=== PATIENT | female | born 2000 | race Caucasian/White ===

== ENCOUNTER 2023-08-21 09:52 | Inpatient (IN) ==
[2023-08-21] MEDS: SODIUM CHLORIDE 0.9% 500 ML IV SCH (10:50)
[2023-08-21] MEDS: levETIRAcetam 500 MG/5 ML VIAL IV STA ×2 (10:52→11:28)
--- NOTE | 2023-08-21 10:54 | Emergency Department Note ---
Impression & Plan Seizure, Head injury ED Provider Note NAME: CARLENE KHAN AGE: 23 SEX: F : 2000 ARRIVES VIA: Ambulance INFORMANT: Patient, EMS ED PROVIDER(S): Seymour Hair DO CHIEF COMPLAINT: Seizure disorder HPI: The patient is a 23-year-old female who presented to the emergency department from the [facility] for an evaluation of seizure. The patient has been having episodes of seizure through the course of the last 24 hours. She has had episodes of vomiting. She received Ativan prior to arrival. She is on Keppra and reportedly is taking it. The patient also received Versed by the prehospital personnel prior to arrival. She had an episode where she jumped out of the bed and struck her head according to nursing staff. ROS: See above HPI for pertinent positives & negatives. A total of 10 systems reviewed and were otherwise negative. PAST MEDICAL HISTORY: See Below PAST SURGICAL HISTORY: See Below FAMILY HISTORY: See Below SOCIAL HISTORY: See Below HOME MEDICATIONS: See Below ALLERGIES: See Below VITALS: See Below PHYSICAL EXAMINATION: GENERAL: Patient is awake and alert. She is somewhat anxious appearing. EYES: The conjunctivae are clear. The pupils are round and reactive. EARS, NOSE, MOUTH AND THROAT: The nose is without any evidence of any deformity. Mucous membranes are moist. NECK: The neck is nontender and supple. RESPIRATORY: Normal respiratory effort is noted there is no evidence of wheezing rhonchi or rales CARDIOVASCULAR: Regular rate and rhythm noted there no murmurs rubs or gallops normal S1 normal S2. GASTROINTESTINAL: The abdomen is soft. Abdomen is nontender. MUSCULOSKELETAL/EXTREMITIES: There is no evidence of gross deformity full range of motion is noted in the hips and shoulders. SKIN: There is no obvious evidence of any rash. There are no petechiae, pallor or cyanosis noted. NEUROLOGIC: Patient is awake alert and oriented x3. Strength was symmetric. MEDICAL DECISION MAKING: The patient is a 23-year-old female who presented to the emergency department from the [facility] for an evaluation of possible seizure-like activity. The patient was found to have multiple seizures throughout the last 24 hours. She has had multiple seizures in the emergency department. Some of the seizures are less obvious than others. The patient has a history of seizure disorder. She was treated with IV Keppra and IV Ativan in the emergency department. I discussed patient's laboratory and radiographic studies with her. Given her findings and her presentation I do not feel that she would be a good candidate for discharge back to the [facility]. For this reason I discussed her condition with the on-call [facility] [place] [facility]. They have agreed to evaluate the patient in the emergency department for further management and disposition. Triage Nursing notes reviewed. Prior medical records reviewed Vital Signs: reviewed and remarkable for no significant abnormalities Differential diagnosis: Epilepsy, infection, hypoglycemia, electrolyte abnormalities, cardiac sources, intracerebral event, trauma, toxicologic, neurologic, syncope, as well as other pathologies. ER treatment provided: See below Diagnostics interpreted by me: ECG: EKG was obtained in the emergency department. My interpretation is normal sinus rhythm at beats per minute. There is no ectopy. There is no acute ST segment abnormalities noted. This was compared to a tracing from September 25, 2022. No changes were noted. Cardiac Monitoring: An order was placed for continuous cardiac monitoring. The monitor shows a rate of 62 bpm with sinus rhythm. Laboratory studies: As stated above and show below. Imaging studies: See below. Radiographic imaging was reviewed by myself Consultation(s): Discussed this case with Dr. Jurado [facility] COURSE: Procedures: none Critical Care: I have personally spent greater than 45 minutes of critical care time in the direct management of this patient. This includes bedside care, interpretation of diagnostic studies, and testing, discussion with consultants, patient, and family members, and other required patient management activities. This 45 minutes is in excess of all separately billable procedures. Past Med/Surg History Medical History (Updated 08/21/23 @ 14:07 by Seymour Hair DO) Asthma Seizure disorder Surgical History (Updated 08/21/23 @ 13:27 by Heri Del Rosario PA-C) History of splenectomy History of Social History Smoking Status: Unknown if ever smoked Hx Substance Use: Yes Prescribed Medications: Marijuana and Opiates Preferred Language: [place] Allergies Allergies Allergy/AdvReac Type Severity Reaction Status Date / Time kiwi Allergy Intermediate Numbness Verified 08/21/23 12:26 Home Meds Home Medications Medication Instructions Recorded Confirmed clonidine HCl 0.1 mg tablet 0.1 mg PO DIRECTED 08/21/23 08/21/23 levetiracetam 500 mg tablet 500 mg PO BID 08/21/23 08/21/23 (Keppra) methocarbamol 750 mg tablet 1,500 mg PO DIRECTED 08/21/23 08/21/23 prochlorperazine 25 mg rectal 25 mg RI DIRECTED 08/21/23 08/21/23 suppository (Compazine) sertraline 25 mg tablet (Zoloft) 25 mg PO DAILY 08/21/23 08/21/23 Results & Data (ED) Vital Signs Vital Signs - 24 hr 08/21/23 10:01 08/21/23 10:25 08/21/23 11:02 Temperature 36.9 C Temperature Source Oral Pulse Rate 80 79 54 L Pulse Rate [Apical] Pulse Rhythm Pulse Rhythm [Apical] Pulse Strength [Apical] Respiratory Rate 18 16 Respiratory Effort / Characteristics Non-Labored Spontaneous Respiratory Depth Normal Respiratory Pattern Blood Pressure 162/102 H 141/88 H Blood Pressure [Right Arm] Blood Pressure Mean 122 97 Blood Pressure Mean [Right Arm] Blood Pressure Position Lying Blood Pressure Position [Right Arm] Pulse Oximetry 98 100 Oxygen Delivery Method Room Air Sepsis Recent Fever Within 48 Hours No Sepsis New/Unexplained Change in Mental Status No Sepsis Action Taken by Nursing No Action Required 08/21/23 11:16 08/21/23 12:02 08/21/23 12:08 Temperature Temperature Source Pulse Rate 64 63 62 Pulse Rate [Apical] Pulse Rhythm Regular Pulse Rhythm [Apical] Pulse Strength [Apical] Respiratory Rate 18 16 16 Respiratory Effort / Characteristics Respiratory Depth Respiratory Pattern Blood Pressure 138/103 H 109/66 Blood Pressure [Right Arm] Blood Pressure Mean 122 79 Blood Pressure Mean [Right Arm] Blood Pressure Position Blood Pressure Position [Right Arm] Pulse Oximetry 100 100 97 Oxygen Delivery Method Room Air Room Air Sepsis Recent Fever Within 48 Hours Sepsis New/Unexplained Change in Mental Status Sepsis Action Taken by Nursing 08/21/23 12:09 08/21/23 14:00 08/21/23 16:00 Temperature Temperature Source Pulse Rate Pulse Rate [Apical] 62 60 57 L Pulse Rhythm Pulse Rhythm [Apical] Regular Regular Pulse Strength [Apical] Normal Respiratory Rate 18 18 18 Respiratory Effort / Characteristics Non-Labored Spontaneous Non-Labored Spontaneous Non-Labored Spontaneous Respiratory Depth Normal Normal Normal Respiratory Pattern Regular Regular Regular Blood Pressure Blood Pressure [Right Arm] 109/66 126/94 144/97 H Blood Pressure Mean Blood Pressure Mean [Right Arm] 80 104 112 Blood Pressure Position Blood Pressure Position [Right Arm] Sitting Sitting Pulse Oximetry 97 100 100 Oxygen Delivery Method Room Air Room Air Room Air Sepsis Recent Fever Within 48 Hours Sepsis New/Unexplained Change in Mental Status Sepsis Action Taken by Half-Way Medications Current Medication List: was personally reviewed by me Laboratory Data Attestation: I reviewed the patient's lab results. 08/21/23 11:40 08/21/23 11:40 Lab Results 08/21/23 08/21/23 08/21/23 Range/Units 11:40 12:17 14:35 WBC 8.64 (4.8-10.8) K/ul RBC 5.57 H (4.20-5.40) M/uL Hgb 15.0 (12.0-16.0) g/dl Hct 45.2 (37.0-47.0) % MCV 81.1 (80.0-100.0) fL MCH 26.9 (25.0-34.0) pg MCHC 33.2 (32.0-36.0) g/dL RDW Std Deviation 45.9 (36.4-46.3) fL RDW Coeff of [place] 15.6 H (11.5-14.5) % Plt Count 369 (130-400) K/uL MPV 9.8 (9.4-12.4) fL Immature Gran % (Auto) 0.3 % Neut % (Auto) 80.5 % Lymph % (Auto) 16.1 % Mckean % (Auto) 2.4 % Eos % (Auto) 0.2 % Baso % (Auto) 0.5 % Neut # (Auto) 6.95 H (1.40-6.50) K/uL Lymph # (Auto) 1.39 (1.20-3.40) K/uL Mckean # (Auto) 0.21 (0.11-0.59) K/uL Eos # (Auto) 0.02 (0.00-0.50) K/uL Baso # (Auto) 0.04 (0.00-0.20) K/uL Immature Gran # (Auto) 0.03 (0.01-0.20) K/uL PT 11.6 (9.0-12.0) Seconds INR 1.1 (0.9-1.1) APTT 26 (21-31) Seconds PTT Ratio 1.0 VBG pH 7.36 (7.36-7.41) VBG pCO2 41 (38-50) mmHg VBG pO2 30 mmHg VBG HCO3 23 mmol/L VBG O2 Saturation < 60.0 % VBG Base Excess -2.2 mEq/L Sodium 138 (136-145) mmol/L Potassium 3.9 (3.5-5.1) mmol/L Chloride 107 (98-107) mmol/L Carbon Dioxide 22 (21-32) mmol/L Anion Gap 9 (3-11) BUN 7 (6-23) mg/dl Creatinine 0.78 (0.6-1.2) mg/dl Est Cr Clr Drug Dosing 89.4 ml/min Est GFR ( Amer) 124.2 ml/min Est GFR (Non-Af Amer) 107.2 ml/min BUN/Creatinine Ratio 9.0 L (10-20) Glucose 128 H (70-99(Fasting)) mg/dl Lactate 2.4 H* (0.4-2.0) mmol/L Calcium 10.2 (8.6-10.3) mg/dl Magnesium 2.0 (1.7-2.4) mg/dl Total Bilirubin 0.5 (0.2-1.0) mg/dl AST 23 (13-39) U/L ALT 11 (7-52) U/L Alkaline Phosphatase 87 (34-104) U/L Total Creatine Kinase 348 H (26-192) U/L Troponin I High Sens < 2.3 (0-14) pg/ml Total Protein 8.3 (6.0-8.3) gm/dl Albumin 4.8 (3.4-5.0) gm/dl Globulin 3.5 (2.5-4.0) gm/dl Albumin/Globulin Ratio 1.4 (0.9-2) Lipase 7 L (11-82) U/L TSH 0.375 (0.300-4.500) uIu/ml Prolactin 5.71 ng/ml HCG, Qual Negative (Negative) Urine Color Yellow Urine Appearance Turbid A (Clear) Urine pH >= 9.0 H (4.5-7.5) Ur Specific [place] 1.021 (1.000-1.030) Urine Protein 1+ H (Negative) Urine Glucose (UA) Negative (Negative) Urine Ketones Negative (Negative) Urine Blood Negative (Negative) Urine Nitrite Negative (Negative) Urine Bilirubin Negative (Negative) Urine Urobilinogen Negative (Negative) Ur Leukocyte Esterase Negative (Negative) Urine WBC (Auto) 0-5 (0-5) /hpf Urine RBC (Auto) 0-2 (0-2) /hpf U Hyaline Cast (Auto) 3-5 H (0-2) /lpf U Epithel Cells (Auto) 0-2 (0-2) /hpf Urine Bacteria (Auto) None Seen (None Seen) Salicylates < 3.0 L (3.0-30) mg/dl Urine Opiates Screen Neg (Neg) Ur Methadone, Qual Neg (Neg) Acetaminophen < 3 L (10-30) ug/ml Urine Barbiturates Neg (Neg) Ur Phencyclidine (PCP) Neg (Neg) U Amphetamin/Meth Scrn Neg (Neg) MDMA (Ecstasy) Screen Neg (Neg) U Benzodiazepines Scrn Pos H (Neg) Ur Cocaine Metabolite Neg (Neg) U Marijuana (THC) Screen Pos H (Neg) Ethyl Alcohol mg/dL < 10.0 (<10.0) mg/dl Administered Medications Discontinued Medications Sodium Chloride (Nss) 500 mls @ 999 mls/hr IV .Q31M [facility] Stop: 08/21/23 11:00 Last Infusion: 08/21/23 11:29 Dose: Infused Documented By: Admin: 08/21/23 10:50 Dose: 999 mls/hr Documented By: BLAKE Valproic Acid 1,000 mg/ (Dextrose) 60 mls @ 55 mls/hr IV NOW STA Stop: 08/21/23 15:31 Last Infusion: 08/21/23 16:31 Dose: Infused Documented By: Admin: 08/21/23 15:21 Dose: 55 mls/hr Documented By: BLAKE Levetiracetam (Levetiracetam 500 Mg/5 Ml Vial) 1,000 mg 20 mg/kg (1000 mg) IV NOW STA Stop: 08/21/23 10:28 Last Admin: 08/21/23 10:52 Dose: 1,000 mg Documented By: BLAKE Levetiracetam (Levetiracetam 500 Mg/5 Ml Vial) 1,000 mg 20 mg/kg (1000 mg) IV NOW STA Stop: 08/21/23 11:17 Last Admin: 08/21/23 11:28 Dose: 1,000 mg Documented By: JUNE Lorazepam (Lorazepam 1 Mg/1 Ml Syr Ed Inj Use) 1 mg IV ONE STA Stop: 08/21/23 11:34 Last Admin: 08/21/23 11:41 Dose: 1 mg Documented By: BLAKE Imaging Data Attestation: I personally reviewed and interpreted this imaging study as follows: My Impression: 1 view chest x-ray was obtained in the emergency department. My interpretation is no free air or definite infiltrate, final report below. CT of the brain was obtained in the emergency department. My interpretation is no intracranial hemorrhage or mass effect, final report below. Radiologist's Impression: Cervical Spine CT 08/21/23 10:28 CT cervical spine wo con CLINICAL HISTORY: fall TECHNIQUE: Multidetector row helical CT of the cervical spine was performed without administration of intravenous contrast. Coronal and sagittal reformations were obtained. Automated dose lowering techniques and/or adjustment according to patient size were utilized for this exam. Comparison: None available at the time of this dictation. FINDINGS: No acute fractures or subluxations are identified. The vertebral body heights and disk spaces are well maintained. The alignment is normal. Soft tissues are unremarkable. IMPRESSION: No evidence of acute bony injury. ACT 112: Negative or not required by law. Electronically signed by: Jeffery Swanson M.D. 08/21/2023 12:17 PM Chest X-Ray 08/21/23 10:28 XR chest 1V portable CLINICAL HISTORY: fall TECHNIQUE: Single frontal radiograph of the chest was obtained. Comparison: Comparison is made to chest radiograph 09/25/2022 FINDINGS: No lines and tubes are seen. The cardiomediastinal silhouette is normal. The lungs are clear. No evidence of pleural effusion or pneumothorax. IMPRESSION: No acute chest disease. ACT 112: Negative or not required by law. Electronically signed by: Jeffery Swanson M.D. 08/21/2023 11:[address] 08/21/23 10:28 CT OF THE HEAD WITHOUT CONTRAST CLINICAL HISTORY: Syncope. COMPARISON STUDY: Head CT and MRI of the brain September 25, 2022. TECHNIQUE: Helical axial images of the head were obtained without IV contrast. Automated exposure control was utilized for the study. A dose lowering technique was utilized adhering to the principles of ALARA. FINDINGS: This study is mildly compromised by motion artifact. No acute intracranial hemorrhage, midline shift or mass effect is present. The ventricular system is unremarkable. The basal cisterns are patent. No extra- axial collections are present. There are no findings to suggest acute dural sinus thrombosis or acute territorial infarct. No significant calvarial abnormalities are present. Visualized portions of the sinuses and mastoid air cells are clear. IMPRESSION: 1. No acute intracranial findings. Exam mildly compromised by motion artifact. 2. No calvarial fractures identified. ACT 112: Negative or not required by law. Electronically signed by: Tu Worrell M.D. 08/21/2023 12:15 PM Discharge Plan Visit Data Chief Complaint: Seizure ED Provider: Seymour Hair Discharge Problem: Seizure, Head injury Patient Disposition: Being Evaluated by Hospitalist Forms Stand Alone Forms: [facility] Prescriptions Prescriptions: No Action clonidine HCl 0.1 mg Tablet 0.1 mg PO DIRECTED levetiracetam [Keppra] 500 mg Tablet 500 mg PO BID methocarbamol [Robaxin] 750 mg Tablet 1,500 mg PO DIRECTED prochlorperazine [Compazine] 25 mg Suppository 25 mg RI DIRECTED sertraline [Zoloft] 25 mg Tablet 25 mg PO DAILY Referrals Referrals: PCP,NO [Physician] - Discharge Problem: Head injury Qualifiers: Encounter type: initial encounter Qualified Code(s): S09.90XA - Unspecified injury of head, initial encounter
[2023-08-21] MEDS: LORazepam 1 MG/1 ML SYR ED Inj Use IV STA (11:41)
--- NOTE | 2023-08-21 11:44 | XRay Report ---
XR chest 1V portable CLINICAL HISTORY: fall TECHNIQUE: Single frontal radiograph of the chest was obtained. Comparison: Comparison is made to chest radiograph 09/25/2022 FINDINGS: No lines and tubes are seen. The cardiomediastinal silhouette is normal. The lungs are clear. No evid ence of pleural effusion or pneumothorax. IMPRESSION: No acute chest disease. ACT 112: Negative or not required by law. Electronically signed by: Jeffery Swanosn M.D. 08/21/2023 11:42 AM
[2023-08-21 12:07] LABS: Basophils # (auto) 0.04 K/uL (0.00-0.20); Basophils % (auto) 0.5 %; Eosinophils # (auto) 0.02 K/uL (0.00-0.50); Eosinophils % (auto) 0.2 %; Hematocrit (blood only) 45.2 % (37.0-47.0); Immature Granulocytes # (auto) 0.03 K/uL (0.01-0.20); Immature Granulocytes % (auto) 0.3 %; Lymphocytes # (auto) 1.39 K/uL (1.20-3.40); Lymphocytes % (auto) 16.1 %; Mean Corpuscular Hemoglobin 26.9 pg (25.0-34.0); Mean Corpuscular Hgb Conc 33.2 g/dL (32.0-36.0); Mean Corpuscular Volume 81.1 fL (80.0-100.0); Mean Platelet Volume 9.8 fL (9.4-12.4); Monocytes # (auto) 0.21 K/uL (0.11-0.59); Monocytes % (auto) 2.4 %; Neutrophils # (auto) 6.95 K/uL (1.40-6.50); Neutrophils % (auto) 80.5 %; Platelet Count 369 K/uL (130-400); RDW Coefficient of Variation 15.6 % (11.5-14.5); RDW Standard Deviation 45.9 fL (36.4-46.3); Red Blood Count 5.57 M/uL (4.20-5.40); White Blood Count 8.64 K/ul (4.8-10.8)
[2023-08-21 12:12] LABS: Base Excess VBG -2.2 mEq/L; HCO3 VBG 23 mmol/L; Oxygen Saturation VBG < 60.0 %; PCO2 VBG 41 mmHg (38-50); PO2 VBG 30 mmHg; pH VBG 7.36 (7.36-7.41)
--- NOTE | 2023-08-21 12:17 | CT Scan Report ---
CT OF THE HEAD WITHOUT CONTRAST CLINICAL HISTORY: Syncope. COMPARISON STUDY: Head CT and MRI of the brain September 25, 2022. TECHNIQUE: Helical axial images of the head were obtained without IV contrast. Automated exposure con trol was utilized for the study. A dose lowering technique was utilized adhering to the principles o f ALARA. FINDINGS: This study is mildly compromised by motion artifact. No acute intracranial hemorrhage, midl ine shift or mass effect is present. The ventricular system is unremarkable. The basal cisterns are p atent. No extra-axial collections are present. There are no findings to suggest acute dural sinus thr ombosis or acute territorial infarct. No significant calvarial abnormalities are present. Visualized portions of the sinuses and mastoid air cells are clear. IMPRESSION: 1. No acute intracranial findings. Exam mildly compromised by motion artifact. 2. No calvarial fractures identified. ACT 112: Negative or not required by law. Electronically signed by: Tu Worrell M.D. 08/21/2023 12:15 PM
--- NOTE | 2023-08-21 12:18 | CT Scan Report ---
CT cervical spine wo con CLINICAL HISTORY: fall TECHNIQUE: Multidetector row helical CT of the cervical spine was performed without administration of intravenous contrast. Coronal and sagittal reformations were obtained. Automated dose lowering techn iques and/or adjustment according to patient size were utilized for this exam. Comparison: None available at the time of this dictation. FINDINGS: No acute fractures or subluxations are identified. The vertebral body heights and disk spaces are wel l maintained. The alignment is normal. Soft tissues are unremarkable. IMPRESSION: No evidence of acute bony injury. ACT 112: Negative or not required by law. Electronically signed by: Jeffery Swanson M.D. 08/21/2023 12:17 PM
[2023-08-21 12:23] LABS: INR 1.1 (0.9-1.1); Partial Thromboplastin Time 26 Seconds (21-31); Prothrombin Time 11.6 Seconds (9.0-12.0)
[2023-08-21 12:28] LABS: Pregnancy Test, Serum Negative (Negative)
[2023-08-21 12:31] LABS: Albumin Level 4.8 gm/dl (3.4-5.0); Anion Gap 9 (3-11); Bilirubin,Total 0.5 mg/dl (0.2-1.0); Calcium 10.2 mg/dl (8.6-10.3); Carbon Dioxide 22 mmol/L (21-32); Chloride 107 mmol/L (98-107); Potassium 3.9 mmol/L (3.5-5.1); Sodium 138 mmol/L (136-145)
[2023-08-21 12:37] LABS: Alanine Aminotransferase 11 U/L (7-52); Albumin Globulin Ratio 1.4 (0.9-2); Alkaline Phosphatase 87 U/L (34-104); Aspartate Aminotransferase 23 U/L (13-39); Blood Urea Nitrogen 7 mg/dl (6-23); Creatine Kinase 348 U/L (26-192); Creatinine Clr Calc Pharmacy 89.4 ml/min; Est GFR (African American) 124.2 ml/min; Est GFR (Non-African American) 107.2 ml/min; Globulin 3.5 gm/dl (2.5-4.0); Glucose 128 mg/dl (70-99(Fasting)); Lipase 7 U/L (11-82); Total Protein 8.3 gm/dl (6.0-8.3)
[2023-08-21 12:40] LABS: Troponin I High Sensitivity < 2.3 pg/ml (0-14)
[2023-08-21 12:45] LABS: Appearance Urine Turbid (Clear); Bacteria Urine Automated None Seen (None Seen); Bilirubin Urine Negative (Negative); Blood Urine Negative (Negative); Color Urine Yellow; Epithelial Cell Urine Auto 0-2 /hpf (0-2); Glucose Urine UA Negative (Negative); Ketones Urine Negative (Negative); Leukocyte Esterase Urine Negative (Negative); Nitrite Urine Negative (Negative); Protein Urine 1+ (Negative); RBC Urine Automated 0-2 /hpf (0-2); Specific Gravity Urine 1.021 (1.000-1.030); Urobilinogen Urine Negative (Negative); WBC Urine Automated 0-5 /hpf (0-5); pH Urine >= 9.0 (4.5-7.5)
[2023-08-21 12:48] LABS: Acetaminophen < 3 ug/ml (10-30); Salicylate < 3.0 mg/dl (3.0-30)
[2023-08-21 12:49] LABS: Thyroid Stimulating Hormone 0.375 uIu/ml (0.300-4.500)
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
[2023-08-21 14:06] LABS: Amphetamines+Metham, Urine Neg (Neg); Barbiturates, Urine Neg (Neg); Benzodiazepine, Urine Pos (Neg); Cocaine, Urine Neg (Neg); MDMA (Ecstacy), Urine Neg (Neg); Marijuana, Urine Pos (Neg); Methadone, Urine Neg (Neg); Opiate, Urine Neg (Neg); Phencyclidine, Urine Neg (Neg)
[2023-08-21] MEDS: VALPROATE SOD 1,000 MG in DEXTROSE 5% 50 ML IV STA (15:21)
--- NOTE | 2023-08-21 16:17 | Electroencephalogram ---
EEG Procedure Note Date of Service August 21, 2023 Start / End Times Start Time: 1535 End Time: 1555 Referring Physician Heri Del Rosario PA-C History 23 year old with heroin withdrawal and seizure like activity. Home Medication List Medication Instructions Recorded Confirmed Type clonidine HCl 0.1 mg tablet 0.1 mg PO DIRECTED 08/21/23 08/21/23 History levetiracetam 500 mg tablet 500 mg PO BID 08/21/23 08/21/23 History (Keppra) methocarbamol 750 mg tablet 1,500 mg PO DIRECTED 08/21/23 08/21/23 History prochlorperazine 25 mg rectal 25 mg MD DIRECTED 08/21/23 08/21/23 History suppository (Compazine) sertraline 25 mg tablet (Zoloft) 25 mg PO DAILY 08/21/23 08/21/23 History Inpatient Medication List Discontinued Medications Sodium Chloride (Nss) 500 mls @ 999 mls/hr IV .Q31M TASH Stop: 08/21/23 11:00 Last Infusion: 08/21/23 11:29 Dose: Infused Documented By: Admin: 08/21/23 10:50 Dose: 999 mls/hr Documented By: BLAKE Valproic Acid 1,000 mg/ (Dextrose) 60 mls @ 55 mls/hr IV NOW STA Stop: 08/21/23 15:31 Last Admin: 08/21/23 15:21 Dose: 55 mls/hr Documented By: BLAKE Levetiracetam (Levetiracetam 500 Mg/5 Ml Vial) 1,000 mg 20 mg/kg (1000 mg) IV NOW STA Stop: 08/21/23 10:28 Last Admin: 08/21/23 10:52 Dose: 1,000 mg Documented By: BLAKE Levetiracetam (Levetiracetam 500 Mg/5 Ml Vial) 1,000 mg 20 mg/kg (1000 mg) IV NOW STA Stop: 08/21/23 11:17 Last Admin: 08/21/23 11:28 Dose: 1,000 mg Documented By: JUNE Lorazepam (Lorazepam 1 Mg/1 Ml Syr Ed Inj Use) 1 mg IV ONE STA Stop: 08/21/23 11:34 Last Admin: 08/21/23 11:41 Dose: 1 mg Documented By: SNS Description This is a 21 electrode EEG with a single channel dedicated to limited EKG. The electrodes were placed in accordance with the International 10-20 system. Interpretation The predominant background activity consists of a very well modulated 10 Hz activity, of up to 40 mV in amplitude,seen symmetrically distributed over the posterior head regions bilaterally, spreading anteriorly symmetrically. This activity attenuates nicely with eye-opening and other alerting procedures. Photic stimulation was performed and elicited no change in the background activity and no abnormal responses were seen. Hyperventilation was not performed. n periodically throughout the recording. A considerable amount of muscle and movement artifact activity contaminated the recording hindering interpretation to any significant degree. However, she was still for many times in between movement Throughout this recording she was moving and would go in and out of spells with different levels of communication. There were at least 4 spells recorded. She was always talking during and after the spells and would say things like "I'm trying to hold still" and "I'm sorry". She would kick out at the machine at times and seemed, to the electrical controls technician, to be aware of what was going on. She would sit up at times. At no time could I identify any abnormal slowing or potentially epileptic activity. She did not enter drowsiness or sleep. In summary, despite all of the movement and spells, this EEG was normal during wakefulness. No focal abnormalities, potentially epileptogenic discharges, or abnormal slow activity was seen. Clinical Correlation The abscence of potentially epileptogenic activity does not exclude a seizure disorder, since interictally, EEGs can be normal. Clinical correlation is required. [facility] EEG Procedure Codes Indication for Procedure (1) Seizure: (2) Heroin withdrawal: Neurology Neurology: 44066 EEG include record awake & drowsy
[2023-08-21] MEDS: LACTATED RINGER'S 1,000 ML IV ONE (18:44)
[2023-08-21] MEDS ORDERED: ACETAMINOPHEN 325 MG TAB PO PRN (19:20)
[2023-08-21] MEDS ORDERED: PROCHLORPERAZINE 25 MG SUPP PR SCH (19:20)
[2023-08-21] MEDS ORDERED: METHOCARBAMOL 750 MG TABLET PO SCH (19:20)
--- OUTSIDE RECORDS SUMMARY | 2023-08-21 20:24 | External Medical Summary ---
Author Name Unknown Address Unknown Organization K0N:[facility] [address], [place] [address] Laboratory Report Ordering Provider Test Date Status SANDYCOSTA 05/30/2023 16:06:04 Final Observation Date Value Abnormality Reference (Units ) Status [facility] SODIUM 05/30/2023 16:06:04 142 135-146 (mmol/L) Final [facility] POTASSIUM 05/30/2023 16:06:04 3.8 3.5-5.1 (mmol/L) Final [facility] CHLORIDE 05/30/2023 16:06:04 106 98-107 (mmol/L) Final [facility] CO2 05/30/2023 16:06:04 26 22-32 (mmol/L) Final [facility] ANION GAP 05/30/2023 16:06:04 14 10-20 (mmol/L) Final [facility] BUN 05/30/2023 16:06:04 7 6-20 (mg/dL) Final [facility] CREATININE 05/30/2023 16:06:04 0.6 0.5-0.9 (mg/dL) Final [facility] ESTIMATED GLOMERULAR FILTRATION RATE 05/30/2023 16:06:04 129 Final [facility] BUN/CREATININE RATIO 05/30/2023 16:06:04 11.7 Below low normal 12.0-20.0 Final [facility] GLUCOSE 05/30/2023 16:06:04 88 70-120 (mg/dL) Final [facility] CALCIUM 05/30/2023 16:06:04 9.8 8.4-10.2 (mg/dL) Final [facility] AST/SGOT 05/30/2023 16:06:04 20 10-35 (U/L) Final [facility] ALKALINE PHOSPHATASE 05/30/2023 16:06:04 95 48-153 (U/L) Final [facility] ALT/SGPT 05/30/2023 16:06:04 15 10-35 (U/L) Final [facility] BILIRUBIN, TOTAL 05/30/2023 16:06:04 0.40 0.00-1.20 (mg/dL) Final [facility] PROTEIN, TOTAL 05/30/2023 16:06:04 7.7 6.0-8.3 (g/dL) Final [facility] ALBUMIN 05/30/2023 16:06:04 4.4 3.8-5.0 (g/dL) Final [facility] GLOBULIN 05/30/2023 16:06:04 3.3 1.8-3.8 (g/dL) Final [facility] ALBUMIN/GLOBULIN RATIO 05/30/2023 16:06:04 1.3 1.0-2.4 Final Performing Location [facility], [place] [address]
--- OUTSIDE RECORDS SUMMARY | 2023-08-21 20:24 | External Medical Summary ---
Author Name Unknown Address Unknown Organization K0N:[place] [address] Laboratory Report Ordering Provider Test Date Status DEFAULT,POCT 05/30/2023 21:27:25 Final Observation Date Value Abnormality Reference (Units ) Status [facility] GLUCOSE POC STAT STRIP 05/30/2023 21:27:25 107 70-110 (mg/dL) [place] [address]
--- OUTSIDE RECORDS SUMMARY | 2023-08-21 20:24 | External Medical Summary ---
Author Name Unknown Address Unknown Organization [place] [address] Laboratory Report Ordering Provider Test Date Status IGOR DELGADO 05/30/2023 17:10:17 Final Observation Date Value Abnormality Reference (Units ) Status [facility] HCG, URINE 05/30/2023 17:10:17 Negative Negative Final [facility] HCG, URINE INTERPRETATION 05/30/2023 17:10:17 Final A false negative result may occur in very dilute urine specimens and specimens with hCG levels below the cut-off level of this test (25 mIUml). If is still suspected, a first morning urine specimen should be collected 48-72 hours later and retested or an alternate confirmation method should be performed. Ectopic may produce levels of HCG in the urine that are below the threshold of detection. [place] [address]
--- OUTSIDE RECORDS SUMMARY | 2023-08-21 20:24 | External Medical Summary ---
Author Name Unknown Address Unknown Organization K0N:[place] [address] Laboratory Report Ordering Provider Test Date Status IGOR DELGADO 05/30/2023 16:06:04 Final Observation Date Value Abnormality Reference (Units ) Status [facility] WHITE BLOOD CELL COUNT 05/30/2023 16:06:04 8.3 4.0-10.5 (K/uL) Final [facility] RED BLOOD CELL COUNT 05/30/2023 16:06:04 5.22 4.20-5.40 Final Hemoglobin 05/30/2023 16:06:04 13.5 12.5-16 (g/dL) Final HCT 05/30/2023 16:06:04 40.3 37-47 (%) Final [facility] MEAN CORPUSCULAR VOLUME 05/30/2023 16:06:04 77.3 Below low normal 78.0-100.0 (fl) Final [facility] MCH 05/30/2023 16:06:04 25.9 Below low normal 27.0-31.0 (pg) Final [facility] MCHC 05/30/2023 16:06:04 33.5 32.5-36.0 (g/dL) Final [facility] RED CELL DIST WIDTH 05/30/2023 16:06:04 17.2 Above high normal 11.5-14.0 (%) Final [facility] PLATELET COUNT 05/30/2023 16:06:04 321 150-450 (K/uL) Final [facility] MPV 05/30/2023 16:06:04 7.4 6.5-9.5 (fL) [place] [address]
--- NOTE | 2023-08-21 20:36 | Electrocardiogram Report ---
Test Reason : Blood Pressure : / mmHG Vent. Rate : 064 BPM Atrial Rate : 064 BPM P-R Int : 130 ms QRS Dur : 086 ms QT Int : 400 ms P-R-T Axes : 032 063 076 degrees QTc Int : 412 ms Normal sinus rhythm with sinus arrhythmia Normal ECG When compared with ECG of 25-SEP-2022 00:39, No significant change was found Confirmed by Gm Niño ([id number]) on 08/21/2023 8:36:12 PM Referred By: Confirmed By:Gm Niño
[2023-08-21] MEDS ORDERED: LOPERAMIDE HCL 2 MG CAP PO PRN (20:55)
[2023-08-21] MEDS: VALPROATE SOD 250 MG in DEXTROSE 5% 50 ML IV SCH (21:23)
[2023-08-21] MEDS: cefTRIAXone SODIUM 2,000 MG/50 ML BAG IV SCH (22:27)
--- NOTE | 2023-08-21 22:59 | Communication Note ---
Date of Service: August 21, 2023 Patient does use heroin, highly likelihood this could be contaminated with fentanyl. Last use about 2 days ago. Patient likely in mild to moderate withdrawal. Discussed case with Heri Del Rosario PA-C and Abilio Sanchez MD prior to the end of their shift. Did recommend utilization of COWS to more accurately assess opioid withdrawal. Unfortunately, there is no nursing protocol for this. Nursing to assess and next steps taken by provider. Dr. Hercules (Behavioral Health), who I have worked with to initiate Suboxone therapy and mitigate withdrawal in the past, has been consulted. Based on COWS may want to initiate clonidine taper or Suboxone for withdrawal. Did also recommend anti-emetics, anti-diarrheals, and anxiolytics. Would recommend placing patient on residency service to aid in warm handoff to Suboxone therapy outpatient. COWS - Clinical Opiate Withdrawal Scale Performed by Wicho Ribeiro RN during shift 08/20 11:44 - 14, ordered Suboxone 4mg-1mg [will reassess after 2 hours after administration of Suboxone if COWS > 6 will administer another dose] 08/21 02:15 - 3, Suboxone not indicated 08/21 06:15 - 0, Suboxone not indicated Significant improvement with Suboxone. Would continue with Suboxone initiation and medical support during withdrawal period. Resources utilized: https://jessica.nih.gov/sites/default/files/ClinicalOpiateWithdrawalScale.pdf Resident Activity Tracking Resident Involvement: Resident Care Provided Care Provided: Adult Hospital Medicine
[2023-08-22] MEDS: BUPRENORPHINE/NALOXONE 8/2 MG TAB SL ONE (00:04)
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
[2023-08-22 07:21] LABS: Basophils # (auto) 0.04 K/uL (0.00-0.20); Basophils % (auto) 0.3 %; Hematocrit (blood only) 38.4 % (37.0-47.0); Hemoglobin 12.8 g/dl (12.0-16.0); Immature Granulocytes # (auto) 0.06 K/uL (0.01-0.20); Immature Granulocytes % (auto) 0.4 %; Mean Corpuscular Hemoglobin 26.5 pg (25.0-34.0); Mean Corpuscular Hgb Conc 33.3 g/dL (32.0-36.0); Mean Corpuscular Volume 79.5 fL (80.0-100.0); Monocytes # (auto) 0.68 K/uL (0.11-0.59); Monocytes % (auto) 4.3 %; Neutrophils # (auto) 11.98 K/uL (1.40-6.50); Platelet Count 383 K/uL (130-400); RDW Coefficient of Variation 15.7 % (11.5-14.5); RDW Standard Deviation 44.9 fL (36.4-46.3); Red Blood Count 4.83 M/uL (4.20-5.40); White Blood Count 15.76 K/ul (4.8-10.8)
[2023-08-22 07:56] LABS: BUN Creatinine Ratio 13.6 (10-20); Calcium 9.6 mg/dl (8.6-10.3); Creatinine Clr Calc Pharmacy 89.4 ml/min; Est GFR (African American) 118.6 ml/min; Est GFR (Non-African American) 102.4 ml/min; Potassium 4.1 mmol/L (3.5-5.1)
[2023-08-22] MEDS: SERTRALINE HCL 50 MG TABLET PO SCH (10:32)
[2023-08-22] MEDS: levETIRAcetam 500 MG TAB PO SCH (10:32)
--- NOTE | 2023-08-22 12:35 | Billing Data ---
Date of Service August 22, 2023 Coding Level of Care Code 65125 SUB INP/OBS CARE
--- NOTE | 2023-08-22 12:35 | Billing Data ---
Date of Service August 22, 2023 Coding Level of Care Code 14694 SUB INP/OBS CARE
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
[2023-08-22] MEDS: CLOTRIMAZOLE 1% CR 15 GM TUBE EXT SCH (15:19)
[2023-08-22] MEDS: ONDANSETRON INJ 2 MG/ML 2 ML VIAL IV STA (15:19)
--- NOTE | 2023-08-22 16:24 | XCELERA ---
[id number]
[2023-08-22] MEDS: ONDANSETRON INJ 2 MG/ML 2 ML VIAL IV PRN (20:33)
[2023-08-23] MEDS: LORazepam 1 MG in SYRINGE 0.5 ML IV PRN (00:36)
[2023-08-23] MEDS: BUPRENORPHINE/NALOXONE 8/2 MG TAB SL ONE (03:31)
[2023-08-23] MEDS: PROCHLORPERAZINE 5 MG in SYRINGE 4 ML IV PRN (03:31)
--- NOTE | 2023-08-23 06:02 | Communication Note ---
Date of Service: August 23, 2023 Was notified by nursing that patient had a positive MRSA nares that returned yesterday afternoon, however I do not see this acknowledged in the progress note from the hospitalist. Patient currently has negative blood and urine cultures, however has had leukocytosis with WBC 15k. Patient is currently receiving empiric ceftriaxone. Will discuss this with oncoming hospitalist. Patient also experienced anxiety/tremors around 12:30 a.m., was given PRN Ativan. Nursing later completed COWS with score of 15, patient had intense abdominal pain, vomiting and some chest pressure at approximately 3:00a.m., I ordered Suboxone 4mg per psychiatry recommendations due to COWS of 15. I went to the floor and discussed with nurse, however patient was sleeping, vital signs stable, and symptoms had improved after receiving the Suboxone so I did not wake her up but asked for further updates if her symptoms returned. Per chart review, there was initially a CTA abdomen ordered on admission that was later cancelled- if further episodes of intense abdominal pain return it may be considered to complete further imaging.
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
[2023-08-23] MEDS ORDERED: DICYCLOMINE HCL 20 MG TAB PO PRN (06:56)
[2023-08-23] MEDS ORDERED: IBUPROFEN 600 MG TAB PO PRN (06:57)
[2023-08-23] MEDS ORDERED: hydrOXYzine HCl 25 MG TAB PO PRN (06:58)
[2023-08-23 08:46] LABS: Basophils # (auto) 0.03 K/uL (0.00-0.20); Basophils % (auto) 0.4 %; Eosinophils # (auto) 0.01 K/uL (0.00-0.50); Eosinophils % (auto) 0.1 %; Hematocrit (blood only) 42.5 % (37.0-47.0); Hemoglobin 14.1 g/dl (12.0-16.0); Immature Granulocytes # (auto) 0.02 K/uL (0.01-0.20); Immature Granulocytes % (auto) 0.3 %; Lymphocytes # (auto) 1.22 K/uL (1.20-3.40); Lymphocytes % (auto) 15.7 %; Mean Corpuscular Hemoglobin 26.8 pg (25.0-34.0); Mean Corpuscular Hgb Conc 33.2 g/dL (32.0-36.0); Mean Corpuscular Volume 80.6 fL (80.0-100.0); Mean Platelet Volume 9.4 fL (9.4-12.4); Monocytes # (auto) 0.19 K/uL (0.11-0.59); Monocytes % (auto) 2.4 %; Neutrophils # (auto) 6.32 K/uL (1.40-6.50); Neutrophils % (auto) 81.1 %; Platelet Count 343 K/uL (130-400); RDW Coefficient of Variation 15.4 % (11.5-14.5); RDW Standard Deviation 44.6 fL (36.4-46.3); Red Blood Count 5.27 M/uL (4.20-5.40); White Blood Count 7.79 K/ul (4.8-10.8)
[2023-08-23 09:02] LABS: BUN Creatinine Ratio 15.5 (10-20); Calcium 9.7 mg/dl (8.6-10.3); Creatinine Clr Calc Pharmacy 86.2 ml/min; Est GFR (African American) 113.5 ml/min; Potassium 4.2 mmol/L (3.5-5.1)
--- NOTE | 2023-08-23 12:42 | Billing Data ---
Date of Service August 23, 2023 Coding Level of Care Code 24989 SUB INP/OBS CARE
[2023-08-23] MEDS: MUPIROCIN 2% OINT 22 GM TUBE EXT SCH (17:03)
[2023-08-23] MEDS: cloNIDine HCL 0.1 MG TAB PO SCH (20:09)
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
[2023-08-24] MEDS: NICOTINE POLACRILEX 2 MG GUM MT PRN (07:16)
[2023-08-24 07:51] LABS: Basophils # (auto) 0.04 K/uL (0.00-0.20); Basophils % (auto) 0.6 %; Eosinophils # (auto) 0.08 K/uL (0.00-0.50); Eosinophils % (auto) 1.3 %; Hematocrit (blood only) 37.8 % (37.0-47.0); Hemoglobin 12.6 g/dl (12.0-16.0); Immature Granulocytes # (auto) 0.01 K/uL (0.01-0.20); Immature Granulocytes % (auto) 0.2 %; Lymphocytes # (auto) 2.17 K/uL (1.20-3.40); Lymphocytes % (auto) 35.2 %; Mean Corpuscular Hemoglobin 26.9 pg (25.0-34.0); Mean Corpuscular Hgb Conc 33.3 g/dL (32.0-36.0); Mean Corpuscular Volume 80.8 fL (80.0-100.0); Mean Platelet Volume 9.7 fL (9.4-12.4); Monocytes # (auto) 0.34 K/uL (0.11-0.59); Monocytes % (auto) 5.5 %; Neutrophils # (auto) 3.53 K/uL (1.40-6.50); Neutrophils % (auto) 57.2 %; Platelet Count 313 K/uL (130-400); RDW Coefficient of Variation 15.2 % (11.5-14.5); RDW Standard Deviation 43.8 fL (36.4-46.3); Red Blood Count 4.68 M/uL (4.20-5.40); White Blood Count 6.17 K/ul (4.8-10.8)
[2023-08-24 08:35] LABS: BUN Creatinine Ratio 12.9 (10-20); Calcium 9.5 mg/dl (8.6-10.3); Creatinine Clr Calc Pharmacy 85.1 ml/min; Est GFR (African American) 111.9 ml/min; Est GFR (Non-African American) 96.6 ml/min; Potassium 3.7 mmol/L (3.5-5.1)
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
== END 2023-08-24 19:16 | disposition home or self-care (01) | DRG 897 ==
LOC: ED 09:52 → SUATTDRO 16:48 → 2S 16:48